=== PATIENT | female | born 1995 | race Caucasian/White ===

== ENCOUNTER 2021-12-28 00:23 | Emergency (ER) | payer OTHER ==
[~2021-12-28] VITALS: Ht 165.1 cm; Wt 68.0 kg
--- NOTE | 2021-12-28 00:51 | NUR ---
BIB FRIEND FOR C/O "VAGINAL PAIN" AND BILATERAL FLANK PAIN. PT A/OX4. TOLERATING R/A WELL WITH NO SOB. SAFETY MEASURES IN PLACE.
--- NOTE | 2021-12-28 00:58 | NUR ---
URINE COLLECTED AND SENT TO LAB
--- NOTE | 2021-12-28 01:44 | NUR ---
WET [place] SWAB COLLECTED VIA [facility] AND SENT TO LAB
[2021-12-28 02:25] LABS: BILIRUBIN,URINE NEGATIVE (NEGATIVE); COLOR,URINE YELLOW (YELLOW); LEUKOCYTE ESTERASE ,URINE NEGATIVE (NEGATIVE); NITRITE, URINE NEGATIVE (NEGATIVE); PROTEIN,URINE NEGATIVE (NEGATIVE); UGLUCOSE NEGATIVE (NEGATIVE); UROBILINOGEN,URINE 0.2 EU/dL (0.2)
--- NOTE | 2021-12-28 02:59 | NUR ---
VAGINAL EXAM DONE BY DR. PENELOPE FARR WITH TOMY [employer]AME [employer] MAINTENANCE
[2021-12-28] MEDS ORDERED: CLOT15CR27 TP (03:05)
[2021-12-28 03:24] VITALS: BP 119/72
--- NOTE | 2021-12-28 03:24 | NUR ---
Patient discharged to home in stable condition. Rx and Written and verbal after care instructions given. Patient verbalizes understanding of instruction.
[2021-12-28 07:45] LABS: BACTERIA,URINE None seen /HPF (None Seen); RBC,URINE 0-2 /HPF (0-2); SQUAMOUS EPITHELIAL CELL,UR Rare /HPF (None Seen); WBC,URINE NONE SEEN /HPF (0-3)
== END 2021-12-28 03:25 | disposition home or self-care (01) ==
LOC: ER 00:26
DX: R10.2 Pelvic and perineal pain (principal); B37.31 Acute candidiasis of vulva and vagina; Z79.899 Other long term (current) drug therapy
CPT/HCPCS: 81001; 87070-TC; 87086-TC; 87491; 87591